=== PATIENT | female | born 2000 | race Caucasian/White ===

== ENCOUNTER 2021-05-20 15:44 | Emergency (ER) | payer BC, OTHER ==
[~2021-05-20] VITALS: Ht 170 cm; Wt 72.5 kg
--- OUTSIDE RECORDS SUMMARY | 2021-05-20 15:49 | XMS REPORT | CCD ---
Author Author Fallon Funk D.O. Organization [facility] Address [address] [place] [address] Phone Care Team Providers Care Horse Breeder Name Role Phone PP Unavailable CCM Unavailable Summary Purpose Interface Exchange Insurance Providers Payer name Policy type / Coverage type Covered alliance party ID Effective Begin Date Effective End Date Blue Cross Blue Shield Blue Cross/Blue Shield [id number] Unknown Unknown Family history Grandparents Diagnosis Age At Onset Diabetes Unknown Cardiovascular disease Unknown Cancer Unknown Social History Social History Element Codes Description Effective Dates Marital status Unknown Single 04/19/2021 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[employer] 04/19/[address]: 045477575 Has never smoked or chewed tobacco 04/19/[address]: 356999 Currently drinks alcohol 04/19 Frequency of drinks SNOMED CT: 306360778 Drinks rarely 021 Alcohol Misuse Unknown No 04/19/2021 Allergies, Adverse Reactions, Alerts Substance Reaction Codes Entered Date Inactivated Date Status _ Unknown 04/19/2021 No Inactive Date Active _ Unknown 04/19/2021 No Inactive Date Active _ Unknown 04/19/2021 No Inactive Date Active Problems Condition Codes Effective Dates Condition Status Allergic rhinitis ICD-10: J30.9 ICD-9: 477.9 04/19/2021 Active Attention deficit disorder ICD-10: F98.8 ICD-9: 314.00 04/19/2021 Active Contact dermatitis and other eczema due to other chemi maribel products ICD-10: L25.3 ICD-9: 692.4 04/19/2021 Active Migraine ICD-10: G43.909 ICD-9: 346.90 04/19/2021 Active 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 ICD-9: 995.7 04/19/2021 Active Screen for STD (sexually transmitted disease) ICD-10: Z11.3 ICD-9: V74.5 04/19/2021 Active Medications Medication Codes Instructions Start Date Stop Date Status Fill Instructions Zyrtec-D 5 mg-120 mg tablet,extended release RxNorm: 5307641 1 Tablet(s) Oral QD 04/19/2021 No Stop Date Active Sprintec (28) 0.25 mg-35 mcg tablet RxNorm: 277558 1 Tablet(s) Oral QD 04/19/2021 04/17/2022 Active methylphenidate 10 mg tablet RxNorm: 4709181 Take 1 Tabl et(s) Oral QD as needed as needed for studying on non-school days--do not take with Vyvanse 04/19/2021 No Stop Date Active Valtrex 500 mg tablet RxNorm: 387502 Tablet(s) Oral as needed 04/19 No Stop Date Active Vyvanse 40 mg capsule RxNorm: 119837 1 Capsule(s) Oral QD No Stop Date Active DesOwen 0.05 % topical cream RxNorm: 574109 Topical as needed 04/19 No Stop Date Active EpiPen 0.3 mg/0.3 mL injection, auto-injector RxNorm: 191398 Milliliter(s) Injection 04/19/2021 No Stop Date Active EpiPen 0.3 mg/0.3 mL injection, auto-injector RxNorm: 123441 Take 1 Unit Dose Injection as needed 04/19/2021 04/19/2021 Inactive Medication Administered No Medication Administered data Immunizations Vaccine Codes Date Status Covid-19 CVX: 207 09/18/2020 Covid-19 CVX: 207 09/18/2020 Human Papillomavirus CVX: 165 02/07/2020 Results No Results data Procedures Procedure Codes Date CT/GC Urine CPT-4: 60525 04/19/2021 Vital Signs Date Vital 04/19/2021 Blood Pressure 1: 122/73 Code: 8480-6 BMI: 25.8 Code: 29982-3 Heart Rate 1: 89 bpm Height: 5'6" Code: 8302-2 Respiratory Rate: 15 bpm SpO2: 98% Temperature: 36.6 (C) / 97.8 (F) Weight: 162 lbs Code: 29818-4 Functional Status No Functional Status data Reason For Visit Reason For Visit Effective Dates Notes ~generic 04/19/2021 new patient camelia delong Encounters Encounter Performer Location Codes Date () OFFICE/OUTPATIENT VISIT NEW Diagnosis: Screen for STD (sexually transmitted disease)[ICD10: Z11.3] Diagnosis: Contact dermatitis and other eczema due to other chemical products[ICD10: L25.3] Diagnosis: Attention deficit disorder[ICD10: F98.8] Diagnosis: Oral allergy syndrome[ICD10: T78.1XXA] Diagnosis: Allergic rhinitis[ICD10: J30.9] Diagnosis: Migraine[ICD10: G43.909] Ghulam SM[facility] CPT-4: 58727 04/19/2021 Plan of Care Planned Activity Notes Codes Status Date Visit Diagnosis Plan: Migraine Discussion: Uses ibupro fen prn ICD-9 : 346.90 ICD-10 : G43.909 04/19/2021 Visit Diagnosis Plan: Oral allergy syndrome Discussion : Discussed food avoidance as well as using liquid benadryl to swish around in mouth prn Also refilled epi pen ICD-9 : 995.7 ICD-10 : T78.1XXA 04/19/2021 Visit Diagnosis Plan: Contact dermatitis and other eczema due to other chemical products Discussion: Finish Medrol Dose Pack Avoi d dye in future--patient will check on hair dye ingredients with her hairdresser ICD-9 : 692.4 ICD-10 : L25.3 04/19/2021 Visit Diagnosis Plan: Attention deficit disorder Discu ssion: Stable on Vyvanse but given short acting methylphenidate to use on days she does not have school and wants to study for a few hours--discussed the importance of not taking both Vyvanse and methylphenidate together Follow Up: 3 months ICD-9 : 314.00 ICD-10 : F98.8 04/19/2021 Visit Diagnosis Plan: Screen for STD (sexually transmi tted disease) Discussion: GC/Chlamydia Screening ICD-9 : V74.5 ICD-10 : Z11.3 04/19/2021 Visit Diagnosis Plan: Allergic rhinitis Discussion: es zyrtec daily ICD-9 : 477.9 ICD-10 : J30.9 04/19/2021 Patient Education: Valtrex- OptimizeRX Coupon [id number] [email or web address] Completed 04/19/2021 Instructions No Instructions Medical Equipment No Medical Equipment data Health Concerns Section Health Concerns data not found Goals Section Goals data not found Interventions Section Interventions data not found Health Status Evaluations/Outcomes Section Health Status Evaluations/Outcomes data not found Advance Directives No Advance Directive data
--- OUTSIDE RECORDS SUMMARY | 2021-05-20 15:49 | XMS REPORT | CCD ---
Author Author Fallon Funk D.O. Organization [facility] Address [address] [place] [address] Phone Care Team Providers Care Home Theater Experience Expert Name Role Phone PP Unavailable CCM Unavailable Summary Purpose Interface Exchange Insurance Providers Payer name Policy type / Coverage type Covered libertarian ID Effective Begin Date Effective End Date Blue Cross Blue Shield Blue Cross/Blue Shield [id number] Unknown Unknown Family history Grandparents Diagnosis Age At Onset Diabetes Unknown Cardiovascular disease Unknown Cancer Unknown Social History Social History Element Codes Description Effective Dates Marital status Unknown Single 04/19/2021 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[employer] 04/19/[address]: 247773449 Has never smoked or chewed tobacco 04/19/[address]: 397725 Currently drinks alcohol 04/19 Frequency of drinks SNOMED CT: 143313867 Drinks rarely 021 Alcohol Misuse Unknown No [...] Zyrtec-D 5 mg-120 mg tablet,extended release RxNorm: 0700289 1 Tablet(s) Oral QD 04/19/2021 No Stop Date Active Sprintec (28) 0.25 mg-35 mcg tablet RxNorm: 444181 1 Tablet(s) Oral QD 04/19/2021 04/17/2022 Active methylphenidate 10 mg tablet RxNorm: 6261633 Take 1 Tabl et(s) Oral QD as needed as needed for studying on non-school days--do not take with Vyvanse 04/19/2021 No Stop Date Active Valtrex 500 mg tablet RxNorm: 358327 Tablet(s) Oral as needed 04/19 No Stop Date Active Vyvanse 40 mg capsule RxNorm: 254785 1 Capsule(s) Oral QD No Stop Date Active DesOwen 0.05 % topical cream RxNorm: 435566 Topical as needed 04/19 No Stop Date Active EpiPen 0.3 mg/0.3 mL injection, auto-injector RxNorm: 245070 Milliliter(s) Injection 04/19/2021 No Stop Date Active EpiPen 0.3 mg/0.3 mL injection, auto-injector RxNorm: 543721 Take 1 Unit Dose Injection as needed 04/19/2021 04/19/2021 Inactive Medication Administered No Medication Administered data Immunizations Vaccine Codes Date Status Covid-19 CVX: 207 09/18/2020 Covid-19 CVX: 207 09/18/2020 Human Papillomavirus CVX: 165 02/07/2020 Results No Results data Procedures Procedure Codes Date CT/GC Urine CPT-4: 88034 04/19/2021 Vital Signs Date Vital 04/19/2021 Blood Pressure 1: 122/73 Code: 8480-6 BMI: 25.8 Code: 47567-5 Heart Rate 1: 89 bpm Height: 5'6" Code: 8302-2 Respiratory Rate: 15 bpm SpO2: 98% Temperature: 36.6 (C) / 97.8 (F) Weight: 162 lbs Code: 78460-9 Functional Status No Functional Status data Reason [...] rhinitis[ICD10: J30.9] Diagnosis: Migraine[ICD10: G43.909] Ghulam SMITH [facility] CPT-4: 77839 04/19/2021 Plan of Care Planned Activity Notes [...] J30.9 04/19/2021 Patient Education: Valtrex- OptimizeRX Coupon [id number] [email or web address] Completed 04/19/2021 Instructions No Instructions Medical Equipment No Medical Equipment data Health Concerns Section Health Concerns data not found Goals Section Goals data not found Interventions Section Interventions data not found Health Status Evaluations/Outcomes Section Health Status Evaluations/Outcomes data not found Advance Directives No Advance Directive data
--- OUTSIDE RECORDS SUMMARY | 2021-05-20 15:49 | XMS REPORT | CCD ---
Author Author Fallon Funk D.O. Organization [facility] Address [address] [place] [address] Phone Care Team Providers Care Civil Preparedness Training Officer Name Role Phone PP Unavailable CCM Unavailable Summary Purpose Interface Exchange Insurance Providers Payer name Policy type / Coverage type Covered democrat ID Effective Begin Date Effective End Date Blue Cross Blue Shield Blue Cross/Blue Shield [id number] Unknown Unknown Family history Grandparents Diagnosis Age At Onset Diabetes Unknown Cardiovascular disease Unknown Cancer Unknown Social History Social History Element Codes Description Effective Dates Marital status Unknown Single 04/19/2021 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[employer] 04/19/[address]: 168149165 Has never smoked or chewed tobacco 04/19/[address]: 995330 Currently drinks alcohol 04/19 Frequency of drinks SNOMED CT: 218373657 Drinks rarely 021 Alcohol Misuse Unknown No 04/19/2021 Allergies, Adverse Reactions, Alerts Substance Reaction Codes Entered Date Inactivated Date Status _ Unknown 04/19/2021 No Inactive Date Active _ Unknown 04/19/2021 No Inactive Date Active _ Unknown 04/19/2021 No Inactive Date Active Problems Condition Codes Effective Dates Condition Status Contact dermatitis and other eczema due to other chemi maribel products ICD-10: L25.3 ICD-9: 692.4 04/19/2021 Active Pruritic dermatitis ICD-10: L29.9 ICD-9: 698.9 04/30/2021 Active Allergic rhinitis ICD-10: J30.9 ICD-9: 477.9 04/19/2021 Active Attention deficit disorder ICD-10: F98.8 ICD-9: 314.00 04/19/2021 Active Migraine ICD-10: G43.909 ICD-9: 346.90 04/19/2021 Active 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 ICD-9: 995.7 04/19/2021 Active Screen for STD (sexually transmitted disease) ICD-10: Z11.3 ICD-9: V74.5 04/19/2021 Active Medications Medication Codes Instructions Start Date Stop Date Status Fill Instructions hydroxyzine HCl 25 mg tablet RxNorm: 729721 Take 1 Tabl et(s) Oral three times a day as needed 04/30/2021 05/09/2021 Active Zyrtec-D 5 mg-120 mg tablet,extended release RxNorm: 6255646 1 Tablet(s) Oral QD 04/19/2021 No Stop Date Active Sprintec (28) 0.25 mg-35 mcg tablet RxNorm: 518590 1 Tablet(s) Oral QD 04/19/2021 04/17/2022 Active methylphenidate 10 mg tablet RxNorm: 9565499 Take 1 Tabl et(s) Oral QD as needed as needed for studying on non-school days--do not take with Vyvanse 04/19/2021 No Stop Date Active Valtrex 500 mg tablet RxNorm: 869249 Tablet(s) Oral as needed 04/19 No Stop Date Active Vyvanse 40 mg capsule RxNorm: 781672 1 Capsule(s) Oral QD No Stop Date Active DesOwen 0.05 % topical cream RxNorm: 670727 Topical as needed 04/19 No Stop Date Active EpiPen 0.3 mg/0.3 mL injection, auto-injector RxNorm: 344854 Milliliter(s) Injection 04/19/2021 No Stop Date Active EpiPen 0.3 mg/0.3 mL injection, auto-injector RxNorm: 766599 Take 1 Unit Dose Injection as needed 04/19/2021 04/19/2021 Inactive Medication Administered No Medication Administered data Immunizations Vaccine Codes Date Status Covid-19 CVX: 207 09/18/2020 Covid-19 CVX: 207 09/18/2020 Human Papillomavirus CVX: 165 02/07/2020 Results Observation Observation Code Item Item Code Result Date S ervice Location CT/GC Urine 36868 Chlamydia Ur Not Detected 04/20/[address]/GC Urine 46684 Gonorrhea Ur Not Detected 04/20/2021 Unknown Procedures Procedure Codes Date DEXAMETHASONE SODIUM PHOS CPT-4: J1100 04/30/2021 THER/PROPH/DIAG INJ SC/IM CPT-4: 47719 04/30/2021 TRIAMCINOLONE ACET INJ NOS CPT-4: J3301 04/30/2021 CT/GC Urine CPT-4: 38861 04/19/2021 Vital Signs Date Vital 04/30/2021 Blood Pressure 1: 122/67 Code: 8480-6 BMI: 25.8 Code: 39076-7 Heart Rate 1: 68 bpm Height: 5'6" Code: 8302-2 Respiratory Rate: 16 bpm SpO2: 99% Temperature: 36.4 (C) / 97.5 (F) Weight: 162 lbs Code: 18644-2 04/19/2021 Blood Pressure 1: 122/73 Code: 8480-6 BMI: 25.8 Code: 99529-2 Heart Rate 1: 89 bpm Height: 5'6" Code: 8302-2 Respiratory Rate: 15 bpm SpO2: 98% Temperature: 36.6 (C) / 97.8 (F) Weight: 162 lbs Code: 58472-1 Functional Status No Functional Status data Reason For Visit Reason For Visit Effective Dates Notes rash 04/30/2021 ~generic 04/19/2021 new patient [facility] Encounters Encounter Performer Location Codes Date (68980) OFFICE/OUTPATIENT VISIT EST Diagnosis: Contact dermatitis and other eczema due to other chemical products[ICD10: L25.3] Diagnosis: Pruritic dermatitis[ICD10: L29.9] Joya ELLIS CPT-4: 54461 04/30/2021 (16219) OFFICE/OUTPATIENT VISIT NEW Diagnosis: Screen for STD (sexually transmitted disease)[ICD10: Z11.3] Diagnosis: Contact dermatitis and other eczema due to other chemical products[ICD10: L25.3] Diagnosis: Attention deficit disorder[ICD10: F98.8] Diagnosis: Oral allergy syndrome[ICD10: T78.1XXA] Diagnosis: Allergic rhinitis[ICD10: J30.9] Diagnosis: Migraine[ICD10: G43.909] [facility] CPT-4: 42285 04/19/2021 Plan of Care Planned Activity Notes Codes Status Date Visit Diagnosis Plan: Pruritic dermatitis Discussion: Kenalog/dexamethasone IM in office. Will send hydroxyzine. Discussed applying emollients. F/U if not improving or for any concerns. ICD-9 : 698.9 ICD-10 : L29.9 04/30/2021 Appointment: Joya Haile WPtel: [phone] [id number] ACUTE ILLNESS 04/30/2021 Patient Education: Patient Medication Summary Completed 04/30/2021 Patient Education: hydroxyzine HCl- OptimizeRX Coupon [id number] Completed 04/30/2021 Visit Diagnosis Plan: Migraine Discussion: Uses ibupro [...] ICD-9 : 477.9 ICD-10 : J30.9 04/19/2021 Appointment: [facility] Funk[facility] [phone] [id number] [facility] 04/19/2021 Patient Education: Valtrex- OptimizeRX Couterry [id number] [email or web address]/getResource/[email or web address] Completed 04/19/2021 Instructions No Instructions Medical Equipment No Medical Equipment data Health Concerns Section Health Concerns data not found Goals Section Goals data not found Interventions Section Interventions data not found Health Status Evaluations/Outcomes Section Health Status Evaluations/Outcomes data not found Advance Directives No Advance Directive data
--- OUTSIDE RECORDS SUMMARY | 2021-05-20 15:49 | XMS REPORT | CCD ---
Author Author Fallon Funk D.O. Organization [facility] Address [address] [place] [address] Phone Care Team Providers Care Pharmacy Operations Coordinator Name Role Phone PP Unavailable CCM Unavailable Summary Purpose Interface Exchange Insurance Providers Payer name Policy type / Coverage type Covered alliance party ID Effective Begin Date Effective End Date Blue Cross Blue Shield Blue Cross/Blue Shield [id number] Unknown Unknown Family history Grandparents Diagnosis Age At Onset Diabetes Unknown Cardiovascular disease Unknown Cancer Unknown Social History Social History Element Codes Description Effective Dates Marital status Unknown Single 04/19/2021 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[employer] 04/19/[address]: 022431866 Has never smoked or chewed tobacco 04/19/[address]: 871746 Currently drinks alcohol 04/19 Frequency of drinks SNOMED CT: 598720036 Drinks rarely 021 Alcohol Misuse Unknown No [...] Zyrtec-D 5 mg-120 mg tablet,extended release RxNorm: 9879693 1 Tablet(s) Oral QD 04/19/2021 No Stop Date Active Sprintec (28) 0.25 mg-35 mcg tablet RxNorm: 758241 1 Tablet(s) Oral QD 04/19/2021 04/17/2022 Active methylphenidate 10 mg tablet RxNorm: 2924802 Take 1 Tabl et(s) Oral QD as needed as needed for studying on non-school days--do not take with Vyvanse 04/19/2021 No Stop Date Active Valtrex 500 mg tablet RxNorm: 474979 Tablet(s) Oral as needed 04/19 No Stop Date Active Vyvanse 40 mg capsule RxNorm: 871449 1 Capsule(s) Oral QD No Stop Date Active DesOwen 0.05 % topical cream RxNorm: 716615 Topical as needed 04/19 No Stop Date Active EpiPen 0.3 mg/0.3 mL injection, auto-injector RxNorm: 101056 Milliliter(s) Injection 04/19/2021 No Stop Date Active EpiPen 0.3 mg/0.3 mL injection, auto-injector RxNorm: 609362 Take 1 Unit Dose Injection as needed 04/19/2021 04/19/2021 Inactive Medication Administered No Medication Administered data Immunizations Vaccine Codes Date Status Covid-19 CVX: 207 09/18/2020 Covid-19 CVX: 207 09/18/2020 Human Papillomavirus CVX: 165 02/07/2020 Results No Results data Procedures Procedure Codes Date CT/GC Urine CPT-4: 80532 04/19/2021 Vital Signs Date Vital 04/19/2021 Blood Pressure 1: 122/73 Code: 8480-6 BMI: 25.8 Code: 30265-3 Heart Rate 1: 89 bpm Height: 5'6" Code: 8302-2 Respiratory Rate: 15 bpm SpO2: 98% Temperature: 36.6 (C) / 97.8 (F) Weight: 162 lbs Code: 38262-7 Functional Status No Functional Status data Reason [...] rhinitis[ICD10: J30.9] Diagnosis: Migraine[ICD10: G43.909] Ghulam SMITH [facility] CPT-4: 54174 04/19/2021 Plan of Care Planned Activity Notes [...] 477.9 ICD-10 : J30.9 04/19/2021 App[facility]ment: [facility]ulam Funk [facility] [phone] [id number] [facility] 04/19/2021 Patient Education: Valtrex- OptimizeRX Patty [id number] [email or web address]/Longfan Mediamd/resources/getResource/[email or web address] Completed 04/19/2021 Instructions No Instructions Medical Equipment No Medical Equipment data Health Concerns Section Health Concerns data not found Goals Section Goals data not found Interventions Section Interventions data not found Health Status Evaluations/Outcomes Section Health Status Evaluations/Outcomes data not found Advance Directives No Advance Directive data
--- OUTSIDE RECORDS SUMMARY | 2021-05-20 15:49 | XMS REPORT | CCD ---
Author Author Fallon Funk D.O. Organization [facility] Address [address] [place] [address] Phone Care Team Providers Care Program Host Name Role Phone PP Unavailable CCM Unavailable Summary Purpose Interface Exchange Insurance Providers Payer name Policy type / Coverage type Covered green party ID Effective Begin Date Effective End Date Blue Cross Blue Shield Blue Cross/Blue Shield [id number] Unknown Unknown Family history Grandparents Diagnosis Age At Onset Diabetes Unknown Cardiovascular disease Unknown Cancer Unknown Social History Social History Element Codes Description Effective Dates Marital status Unknown Single 04/19/2021 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[employer] 04/19/[address]: 774444475 Has never smoked or chewed tobacco 04/19/[address]: 587114 Currently drinks alcohol 04/19 Frequency of drinks SNOMED CT: 885402761 Drinks rarely 021 Alcohol Misuse Unknown No [...] Zyrtec-D 5 mg-120 mg tablet,extended release RxNorm: 5500645 1 Tablet(s) Oral QD 04/19/2021 No Stop Date Active Sprintec (28) 0.25 mg-35 mcg tablet RxNorm: 091182 1 Tablet(s) Oral QD 04/19/2021 04/17/2022 Active methylphenidate 10 mg tablet RxNorm: 6697694 Take 1 Tabl et(s) Oral QD as needed as needed for studying on non-school days--do not take with Vyvanse 04/19/2021 No Stop Date Active Valtrex 500 mg tablet RxNorm: 151085 Tablet(s) Oral as needed 04/19 No Stop Date Active Vyvanse 40 mg capsule RxNorm: 924360 1 Capsule(s) Oral QD No Stop Date Active DesOwen 0.05 % topical cream RxNorm: 637408 Topical as needed 04/19 No Stop Date Active EpiPen 0.3 mg/0.3 mL injection, auto-injector RxNorm: 774064 Milliliter(s) Injection 04/19/2021 No Stop Date Active EpiPen 0.3 mg/0.3 mL injection, auto-injector RxNorm: 774752 Take 1 Unit Dose Injection as needed 04/19/2021 04/19/2021 Inactive Medication Administered No Medication Administered data Immunizations Vaccine Codes Date Status Covid-19 CVX: 207 09/18/2020 Covid-19 CVX: 207 09/18/2020 Human Papillomavirus CVX: 165 02/07/2020 Results No Results data Procedures Procedure Codes Date CT/GC Urine CPT-4: 87308 04/19/2021 Vital Signs Date Vital 04/19/2021 Blood Pressure 1: 122/73 Code: 8480-6 BMI: 25.8 Code: 28231-2 Heart Rate 1: 89 bpm Height: 5'6" Code: 8302-2 Respiratory Rate: 15 bpm SpO2: 98% Temperature: 36.6 (C) / 97.8 (F) Weight: 162 lbs Code: 13379-0 Functional Status No Functional Status data Reason [...] rhinitis[ICD10: J30.9] Diagnosis: Migraine[ICD10: G43.909] Ghulam [facility] CPT-4: 72984 04/19/2021 Plan of Care Planned Activity Notes [...] J30.9 04/19/2021 App[facility]ment: [facility]ul[facility] [phone] [id number] NEW [facility]IENT 04/19/2021 Patient Education: Valtrex- OptimizeRX Patty [id number] [email or web address] Completed 04/19/2021 Instructions No Instructions Medical Equipment No Medical Equipment data Health Concerns Section Health Concerns data not found Goals Section Goals data not found Interventions Section Interventions data not found Health Status Evaluations/Outcomes Section Health Status Evaluations/Outcomes data not found Advance Directives No Advance Directive data
--- OUTSIDE RECORDS SUMMARY | 2021-05-20 15:49 | XMS REPORT | CCD ---
Author Author Fallon Funk D.O. Organization GHULAM FUNK DO [facility] Address [address] [place] [address] Phone Care Team Providers Care Firmware Software Verification Engineer Name Role Phone PP Unavailable CCM Unavailable Summary Purpose Interface Exchange Insurance Providers Payer name Policy type / Coverage type Covered republican ID Effective Begin Date Effective End Date Blue Cross Blue Shield Blue Cross/Blue Shield [id number] Unknown Unknown Family history Grandparents Diagnosis Age At Onset Diabetes Unknown Cardiovascular disease Unknown Cancer Unknown Social History Social History Element Codes Description Effective Dates Marital status Unknown Single 04/19/2021 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 [employer] 04/19/[address]: 850303267 Has never smoked or chewed tobacco 04/19/[address]: 765034 Currently drinks alcohol 04/19 Frequency of drinks SNOMED CT: 493545835 Drinks rarely 021 Alcohol Misuse Unknown No [...] Zyrtec-D 5 mg-120 mg tablet,extended release RxNorm: 8738439 1 Tablet(s) Oral QD 04/19/2021 No Stop Date Active Sprintec (28) 0.25 mg-35 mcg tablet RxNorm: 436253 1 Tablet(s) Oral QD 04/19/2021 04/17/2022 Active methylphenidate 10 mg tablet RxNorm: 0907348 Take 1 Tabl et(s) Oral QD as needed as needed for studying on non-school days--do not take with Vyvanse 04/19/2021 No Stop Date Active Valtrex 500 mg tablet RxNorm: 613842 Tablet(s) Oral as needed 04/19 No Stop Date Active Vyvanse 40 mg capsule RxNorm: 338627 1 Capsule(s) Oral QD No Stop Date Active DesOwen 0.05 % topical cream RxNorm: 525057 Topical as needed 04/19 No Stop Date Active EpiPen 0.3 mg/0.3 mL injection, auto-injector RxNorm: 819588 Milliliter(s) Injection 04/19/2021 No Stop Date Active EpiPen 0.3 mg/0.3 mL injection, auto-injector RxNorm: 866341 Take 1 Unit Dose Injection as needed 04/19/2021 04/19/2021 Inactive Medication Administered No Medication Administered data Immunizations Vaccine Codes Date Status Covid-19 CVX: 207 09/18/2020 Covid-19 CVX: 207 09/18/2020 Human Papillomavirus CVX: 165 02/07/2020 Results Observation Observation Code Item Item Code Result Date S ervice Location CT/GC Urine 61469 Chlamydia Ur Not Detected 04/20/[address]/GC Urine 72087 Gonorrhea Ur Not Detected 04/20/2021 Unknown Procedures Procedure Codes Date CT/GC Urine CPT-4: 80749 04/19/2021 Vital Signs Date Vital 04/19/2021 Blood Pressure 1: 122/73 Code: 8480-6 BMI: 25.8 Code: 83092-7 Heart Rate 1: 89 bpm Height: 5'6" Code: 8302-2 Respiratory Rate: 15 bpm SpO2: 98% Temperature: 36.6 (C) / 97.8 (F) Weight: 162 lbs Code: 92297-4 Functional Status No Functional Status data Reason For Visit Reason For Visit Effective Dates Notes ~generic 04/19/[address] 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] Diagnosis: Allergic rhinitis[ICD10: J30.9] Diagnosis: Migraine[ICD10: G43.909] Ghulam SMITH [facility] CPT-4: 34578 04/19/2021 Plan of Care Planned Activity Notes [...] 04/19/2021 Visit Diagnosis Plan: Allergic rhinitis Discussion: Us es zyrtec daily ICD-9 : 477.9 ICD-10 : J30.9 04/19/2021 Appointment: [facility] [address] [id number] [facility] 04/19/2021 Patient Education: Valtrex- OptimizeRX Coupon [id number] [email or web address] Completed 04/19/2021 Instructions No Instructions Medical Equipment No Medical Equipment data Health Concerns Section Health Concerns data not found Goals Section Goals data not found Interventions Section Interventions data not found Health Status Evaluations/Outcomes Section Health Status Evaluations/Outcomes data not found Advance Directives No Advance Directive data
[2021-05-20] MEDS ORDERED: CEFD300C3 PO (16:26)
--- NOTE | 2021-05-20 16:31 | ED Cough/URI ---
General Chief Complaint: Cough/Cold/Flu Symptoms Stated Complaint: COUGH/CONGESTION Nursing Triage Note: PT ARRIVES TO ER WITH C/O BARKING COUGH, CONGESTION, SORE THROAT, AND GREEN MUCOUS SINCE LAST FRIDAY. PT WAS SEEN AT [facility] LAST FRIDAY AND WAS TOLD SHE HAD A VIRUS Source: patient Exam Limitations: no limitations History of Present Illness Date Seen by Provider: May 20, 2021 Time Seen by Provider: 16:11 Initial Comments Here with report of moderate to significant nasal congestion with cough, sore throat and mucus now that is leaking out her eyes. She was seen at [facility] and had Covid and strep testing which were negative. She was informed this was likely other viral upper respiratory infection. Things have worsened since she was seen several days ago. She feels moderate to significant sinus fullness in the maxillary and frontal sinus area. She is quite congested. Fever a few days ago but none since. Denies nausea or vomiting. Timing/Duration: week, getting worse Severity/Quality: moderate, dry cough Associated Symptoms: cough, facial pain, fever/chills, nasal congestion, nasal drainage, sinus infection, sore throat Allergies and Home Medications Allergies Coded Allergies: amoxicillin (Verified Allergy, Unknown, 05/20/21) doxycycline (Verified Allergy, Unknown, 05/20/21) Patient Home Medication List Home Medication List Reviewed: Yes Review of Systems Review of Systems Constitutional: see HPI EENTM: see HPI Respiratory: see HPI Cardiovascular: no symptoms reported Gastrointestinal: No nausea, No vomiting Genitourinary: no symptoms reported Psychiatric/Neurological: No Symptoms Reported Past Vytwhvx-Ykyzdf-Gdueov Hx Patient Social History Tobacco Use?: No Substance use?: No Alcohol Use?: Yes Alcohol type: Wine Alcohol Frequency: Rarely Pt feels they are or have been: No Immunizations Up To Date Influenza Vaccine Up-to-Date: No; Not Current First/Initial COVID19 Vaccinat: AUG 2020 Second COVID19 Vaccination Talha: SEPTEMBER 2020 COVID19 Vaccine Triage Rn: JAMIE Past Medical History Surgeries: No Last Menstrual Period: Apr 19, 2021 Family Medical History Reviewed and Corrections made Physical Exam Vital Signs - First Documented 05/20/21 16:00 Temp 36.6 Pulse 102 Resp 20 B/P (MAP) 137/99 (112) Pulse Ox 98 O2 Delivery Room Air Capillary Refill : Less Than 3 Seconds Height: '" Weight: lbs. oz. kg; 25.00 BMI Method: General Appearance: WD/WN, no apparent distress HEENT: PERRL/EOMI, TMs normal, pharyngeal erythema, other (Moderate bilateral nasal congestion with clear to purulent mucus drainage and moderate to significant erythema bilateral. Puffiness under both eyes. Tender along the maxillary sinuses bilateral) Neck: full range of motion, supple Respiratory: lungs clear, normal breath sounds Cardiovascular: no murmur, tachycardia Neurologic/Psychiatric: alert, oriented x 3 Skin: normal color, warm/dry Progress/Results/Core Measures Suspected Sepsis SIRS Temperature: Pulse: 102 Respiratory Rate: 20 Blood Pressure 137 /99 Mean: 112 Results/Orders My Orders Orders - LIZA HASSAN MD Dexamethasone Injection (Decadron Inje (05/20/21 16:30) Vital Signs/I&O 05/20/21 16:00 Temp 36.6 Pulse 102 Resp 20 B/P (MAP) 137/99 (112) Pulse Ox 98 O2 Delivery Room Air Capillary Refill : Less Than 3 Seconds Blood Pressure Mean: 112 Progress Note : Progress Note Seen and evaluated. Decadron 10 mg IM. Discharged home with return precautions. Patient verbalized understanding of precautions and agreement with plan. Discussed control and antibiotics and increased risk of . Patient verbalized understanding. Departure Impression Primary Impression: Acute sinusitis Qualified Codes: J01.90 - Acute sinusitis, unspecified Disposition: 01 HOME, SELF-CARE Condition: Stable Departure-Patient Inst. Decision time for Depature: 16:31 Referrals: GHULAM SADLER DO (PCP/Family) Primary Care Physician Patient Instructions: Sinusitis, Adult (DC) Add. Discharge Instructions: All discharge instructions reviewed with patient and/or family. Voiced understanding. You may take Tylenol/acetaminophen 1000 mg every 8 hours as needed for fever or pain. You may take ibuprofen 600 mg every 8 hours as needed for fever or pain. You may use Afrin nasal spray or the generic, 12 hour relief, 2 sprays to each nostril twice daily for 3 days only and then stop. Do not use more than 3 days. Follow-up with your DrRanjana in a few days for recheck. Drink plenty of fluids. Take medications as directed. Remember the antibiotics may decrease the effectiveness of your control and you should use other precautions. Return for worse pain, fever, vomiting, weakness, breathing problems or other concerns as needed. Scripts Cefdinir (Cefdinir) 300 Mg Capsule 300 MG PO BID, #20 CAP 0 Refills Prov: LIZA HASSAN MD 05/20/21 LIZA HASSAN MD May 20, 2021 16:31
[2021-05-20 16:37] VITALS: BP 126/78
== END 2021-05-20 16:38 | disposition home or self-care (01) ==
LOC: ER 15:46
DX: J01.90 Acute sinusitis, unspecified (principal); R00.0 Tachycardia, unspecified; Z20.822 Contact with and (suspected) exposure to COVID-19
CPT/HCPCS: 99284

== ENCOUNTER 2022-01-27 12:33 | Emergency (ER) | payer BC ==
[~2022-01-27] VITALS: Ht 172 cm; Wt 72.0 kg
[~2022-01-27 12:33] MED LIST: CEFD300C3 PO
--- NOTE | 2022-01-27 13:28 | ED Upper Extremity ---
General Chief Complaint: Upper Extremity Stated Complaint: R HAND INJ Nursing Triage Note: PT AMB TO RM 4 PT CO OF R HAND PAIN, STATES SMASHED ON ROCK DURING FLOAT TRIP. RATES PAIN 04/29 AT TIMES Source: patient ([facility]) History of Present Illness Date Seen by Provider: Jan 27, 2022 Time Seen by Provider: 13:23 Initial Comments Patient presents to the ER for evaluation of right hand pain. [place] and struck her hand on a rock, causing immediate pain. She denies any other injuries. Severity: moderate Pain/Injury Location: right hand Method of Injury: direct blow ([facility]) Allergies and Home Medications Allergies Coded Allergies: amoxicillin (Verified Allergy, Unknown, 05/20/21) doxycycline (Verified Allergy, Unknown, 05/20/21) Patient Home Medication List Home Medication List Reviewed: Yes ([facility]) Cefdinir (Cefdinir) 300 Mg Capsule, 300 MG PO BID Prescribed by: LIZA HASSAN on 05/20/21 1626 Diclofenac Sodium (Diclofenac Sodium) 75 Mg Tablet.dr, 75 MG PO BID Prescribed by: Wild Weathers on 01/27/22 1330 Review of Systems Constitutional: no symptoms reported EENTM: no symptoms reported Respiratory: no symptoms reported Cardiovascular: no symptoms reported Gastrointestinal: no symptoms reported Genitourinary: no symptoms reported Musculoskeletal: other (right hand pain) Skin: no symptoms reported Psychiatric/Neurological: No Symptoms Reported ([facility]) Past Skcille-Tmzlgx-Qdmuwp Hx Patient Social History Tobacco Use?: No Use of E-Cig and/or Vaping dev: No Substance use?: No ([facility]) Immunizations Up To Date First/Initial COVID19 Vaccinat: AUG 2020 Second COVID19 Vaccination Talha: SEPTEMBER 2020 ([facility]) Past Medical History Surgeries: No Last Menstrual Period: Jan 17, 2022 ([facility]) Surgeries: No Respiratory: No Cardiac: No Neurological: No : No Genitourinary: No Gastrointestinal: No Musculoskeletal: No Endocrine: No HEENT: No Cancer: No Psychosocial: No Integumentary: No (SCOTTIE PEREZ MD) Physical Exam Vital Signs Vital Signs - First Documented 01/27/22 12:43 Temp 36.3 Pulse 96 Resp 18 B/P (MAP) 118/76 (90) Pulse Ox 98 (SCOTTIE PEREZ MD) Vital Signs Capillary Refill : Less Than 3 Seconds ([facility]) Height, Weight, BMI Height: '" Weight: lbs. oz. 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 She will be placed in an ulnar gutter splint on the right side by the nurse and supervised by me. She was neurovascular intact post application. We will give her follow-up to the orthopedic team. ([facility]) Impression Primary Impression: Fracture of fifth metacarpal bone Disposition: 01 HOME, SELF-CARE Condition: Stable Departure-Patient Inst. Decision time for Depature: 13:29 ([facility]) Referrals: GHULAM SADLER DO (PCP/Family) Primary Care Physician LORETTA HUMPHRIES MD Patient Instructions: Hand Fracture (DC), Splint Care Add. Discharge Instructions: Please follow-up with your orthopedist as we discussed. Return to the emergency room with any severe changes or worsening symptoms. All discharge instructions reviewed with patient and/or family. Voiced understanding. Scripts Diclofenac Sodium (Diclofenac Sodium) 75 Mg Tablet. 75 MG PO BID for 7 Days, #14 TAB Prov: [facility] 01/27/22 I interviewed and examined this patient prior to transitioning her care to [facility] TAMIKA Weathers. She reiterated the same history [place]. She has had persistent pain and swelling. X-rays were ordered by me and care was transitioned to TAMIKA Bautista. (SCOTTIE PEREZ MD) [facility] Jan 27, 2022 13:28 SCOTTIE PEREZ MD Jan 29, 2022 19:18
[2022-01-27] MEDS ORDERED: DICL75TA2 PO (13:30)
[2022-01-27 13:54] VITALS: BP 118/76
--- NOTE | 2022-01-27 13:56 | Diagnostic Imaging Report ---
HISTORY: Right hand pain TECHNIQUE: 3 views of the right hand COMPARISON: None FINDINGS: There is a nondisplaced fracture of the right 5th metacarpal involving the proximal shaft and the base including the articular surface. There is no other fracture seen. Alignment otherwise appears normal. There is soft tissue swelling medially in the right hand. IMPRESSION: 1. Nondisplaced intra-articular fracture of the right 5th metacarpal shaft and base. Dictated by: Dictated on workstation # [id number]
--- NOTE | 2022-01-27 13:56 | Diagnostic Imaging Report ---
HISTORY: Right wrist pain COMPARISON: None TECHNIQUE: 3 views of the right wrist FINDINGS: There is a nondisplaced fracture of the right 5th metacarpal shaft and base which extends to the proximal articular surface. There is surrounding soft tissue edema. No other fractures are seen in the right wrist. Joint spaces are preserved. IMPRESSION: 1. Nondisplaced intra-articular fracture of the right 5th metacarpal shaft and base. Dictated by: Dictated on workstation # [id number]
== END 2022-01-27 13:55 | disposition home or self-care (01) ==
LOC: EDUNIT# 12:33 → ER 12:35
DX: S62.306A Unspecified fracture of fifth metacarpal bone, right hand, initial encounter for closed fracture (principal); W22.8XXA Striking against or struck by other objects, initial encounter
CPT/HCPCS: 73110; 73130